=== PATIENT | female | born 1950 | race Caucasian/White ===

== ENCOUNTER → 2017-12-19 | Outpatient (CLI) | payer MEDICARE, OTHER ==
[~2017-12-19] MED LIST: ACET-1718 PO; ASPI-1471 PO; CALC500T6 PO; CHOL200074 PO; IBUP600T22 PO; LEV112 PO; OMEG500C5 PO; SIMV-49 PO; SOUR1000 PO; UBID10CA11 PO
--- NOTE | 2017-12-20 16:06 | RADIOLOGY IMAGING REPORT ---
FACILITY: [facility] [place] PATIENT NAME: GINNY ESTRADA : [id number] MR: [id number] V: [id number] EXAM DATE: [id number] ORDERING PHYSICIAN: SANDOR CORDOVA TECHNOLOGIST: Nichelle Harmon PROCEDURE:BILATERAL DIGITAL SCREENING MAMMOGRAM WITH CAD ASSISTED INTERPRETATION & 3D TOMOSYNTHESIS COMPARISON:Prior mammograms INDICATIONS:screening FINDINGS: Scattered fibroglandular tissue is present in both breasts. Several benign appearing calcifications are scattered bilaterally. DIAGNOSTIC CATEGORY 1--NEGATIVE. RECOMMENDATIONS: ROUTINE MAMMOGRAM AND CLINICAL EVALUATION IN 1 YR. IMPRESSION: BIRADS 1: Negative. Dictated by: Philip Sharp M.D. on 12/20/2017 at 11:20 Transcribed by: FIX on 12/20/2017 at 13:09 Approved by: Philip Sharp M.D. on 12/20/2017 at 16:05 [facility]
== END ==
LOC: MAMO 00:32
PROVIDERS: ATTEND Nurse Practitioner Psychiatric/Mental Health
DX: Z00.00 Encounter for general adult medical examination without abnormal findings (principal)
CPT/HCPCS: 77063; 77067